=== PATIENT | female | born 1955 | race Caucasian/White ===

== ENCOUNTER 2019-07-07 14:42 | Emergency (ER) | payer OTHER ==
[~2019-07-07] VITALS: Ht 165.1 cm; Wt 59.9 kg
[2019-07-07 14:51] VITALS: BP 107/71; Ht 165.1 cm; Wt 59.9 kg
== END 2019-07-07 18:46 | disposition home or self-care (01) ==
LOC: ED 14:42
DX: J11.1 Influenza due to unidentified influenza virus with other respiratory manifestations (principal)

== ENCOUNTER 2019-12-25 12:07 | Emergency (ER) | payer OTHER ==
[~2019-12-25] VITALS: Ht 162.6 cm; Wt 60.8 kg
[2019-12-25 12:23] VITALS: BP 121/73; Ht 162.6 cm; Wt 60.8 kg
== END 2019-12-25 13:33 | disposition home or self-care (01) ==
LOC: ED 12:07
DX: K12.1 Other forms of stomatitis (principal); K20.9 Esophagitis, unspecified; E11.9 Type 2 diabetes mellitus without complications; E03.9 Hypothyroidism, unspecified

== ENCOUNTER 2020-02-20 15:44 | Emergency (ER) | payer OTHER ==
[~2020-02-20] VITALS: Ht 165.1 cm; Wt 61.7 kg
[2020-02-20 15:54] VITALS: Ht 165.1 cm; Wt 61.7 kg
[2020-02-20 17:16] LABS: BASOPHIL % 0.6 % (0-2); PLATELET COUNT 208 x10^3mcL (130-400); RED CELL DISTRIBUTION WIDTH 14.3 % (11.5-14.5)
[2020-02-20 17:21] LABS: UA SPECIFIC GRAVITY <=1.005 (1.005-1.035); microscopic required? YES; urine erythrocyte TRACE (NEGATIVE)
[2020-02-20 17:23] LABS: CALCIUM 8.4 mg/dL (8.5-10.1); CARBON DIOXIDE 28.5 mmol/L (21-32); CHLORIDE SERUM 104 mmol/L (98-107); CREATININE SERUM 0.9 mg/dL (0.6-1.0); GFR1 > 60 mL/min; GLUCOSE SERUM 97 mg/dL (74-106); POTASSIUM SERUM 3.8 mmol/L (3.5-5.1); SODIUM SERUM 139 mmol/L (136-145)
[2020-02-20 17:27] LABS: ALBUMIN 3.7 g/dL (3.4-5.0); ALKALINE PHOSPHATASE 61 U/L (46-116); ALT/SGPT 25 U/L (14-59); AST/SGOT 19 U/L (15-37); BILIRUBIN TOTAL 0.28 mg/dL (0.20-1.00); TOTAL PROTEIN, SERUM 6.9 g/dL (6.4-8.2)
[2020-02-20 19:14] VITALS: BP 116/77
== END 2020-02-20 19:14 | disposition home or self-care (01) ==
LOC: ED 15:44
PROVIDERS: Emergency Medicine
DX: K59.00 Constipation, unspecified (principal); E11.9 Type 2 diabetes mellitus without complications; E03.9 Hypothyroidism, unspecified; M19.90 Unspecified osteoarthritis, unspecified site
CPT/HCPCS: Q0092

== ENCOUNTER 2020-03-07 16:05 | Emergency (ER) | payer OTHER ==
[~2020-03-07] VITALS: Ht 167.6 cm; Wt 60.8 kg
[2020-03-07 16:25] VITALS: Ht 167.6 cm; Wt 60.8 kg
[2020-03-07 20:38] VITALS: BP 106/72
== END 2020-03-07 20:38 | disposition home or self-care (01) ==
LOC: ED 16:05
DX: K82.4 Cholesterolosis of gallbladder (principal); E11.9 Type 2 diabetes mellitus without complications; E03.9 Hypothyroidism, unspecified; M19.90 Unspecified osteoarthritis, unspecified site
CPT/HCPCS: J1885; Q0092

== ENCOUNTER 2020-07-08 11:31 | Emergency (ER) | payer OTHER ==
[~2020-07-08] VITALS: Ht 167.6 cm; Wt 61.7 kg
[2020-07-08 11:40] VITALS: BP 122/71; Ht 167.6 cm; Wt 61.7 kg
== END 2020-07-08 12:09 | disposition home or self-care (01) ==
LOC: ED 11:31
DX: L25.9 Unspecified contact dermatitis, unspecified cause (principal); E11.9 Type 2 diabetes mellitus without complications